=== PATIENT | female | born 1955 | race Caucasian/White ===

== ENCOUNTER 2021-08-31 14:05 | Outpatient (CLI) | payer MEDICARE | END 2021-08-31 14:06 | disposition home or self-care (01) | LOC: CSHMAMMO 14:05 | PROVIDERS: ATTEND Obstetrics & Gynecology | DX: Z12.31 Encounter for screening mammogram for malignant neoplasm of breast (principal); Z13.820 Encounter for screening for osteoporosis; M85.89 Other specified disorders of bone density and structure, multiple sites | CPT/HCPCS: 77063; 77067; 77080 ==

== ENCOUNTER 2022-09-02 09:17 | Outpatient (CLI) | payer MEDICARE | END 2022-09-02 09:18 | disposition home or self-care (01) | LOC: CSHMAMMO 09:17 | PROVIDERS: ATTEND Obstetrics & Gynecology | DX: Z12.31 Encounter for screening mammogram for malignant neoplasm of breast (principal) | CPT/HCPCS: 77063; 77067 ==